=== PATIENT | male | born 1990 | race African-American/Black ===

== ENCOUNTER 2019-03-05 18:55 | Emergency (ER) | payer SELFPAY ==
--- NOTE | 2019-03-05 19:06 | ER Document Report ---
ED Medical Screen (RME) - General Chief Complaint: Hand Pain Stated Complaint: HAND PAIN Time Seen by Provider: 03/05/19 19:00 Mode of Arrival: Ambulatory Information source: Patient Notes: 28-year-old male presents to ED for complaint of pain and swelling to his left thumb. He states he first injured it playing basketball and the bone came through the skin. He states it was sutured in [place]. He states he has not followed up with orthopedic or anybody since he injured his hand. The hand is now swollen and painful. States he does not smoke cigarettes drink alcohol but he does smoke marijuana. Patient is alert oriented respirations regular and unlabored. I have greeted and performed a rapid initial assessment of this patient. A comprehensive ED assessment and evaluation of the patient, analysis of test results and completion of medical decision making process will be conducted by an additional ED providers.
--- NOTE | 2019-03-05 20:27 | RADIOLOGY REPORT (SQ) ---
EXAM DESCRIPTION: XR FINGERS COMPLETED DATE/TME: 03/05/2019 19:08 CLINICAL HISTORY: 28 years, Male, Recent open fracture pain and swelling COMPARISON: EXAM DESCRIPTION: CLINICAL HISTORY: Recent open fracture pain and swelling COMPARISON: None FINDINGS: 3 view(s) submitted. Tiny bone fragments are seen adjacent to the first IP joint. These could be sequela of prior injury but avulsive fragments are also possible. No other fracture or dislocation. IMPRESSION: Possible avulsion most likely arising from the distal aspect of the first proximal phalanx.
--- NOTE | 2019-03-05 21:25 | ER Document Report ---
ED Hand/Wrist Injury - General Chief Complaint: Hand Pain Stated Complaint: HAND PAIN Time Seen by Provider: 03/05/19 19:00 Primary Care Provider: [facility] [Provider Group] - Follow up as needed JENA SANTANA MD [ACTIVE PROVISIONAL STAFF] - 03/07/19 TUCKER LARRY JR, DO [ACTIVE PROVISIONAL STAFF] - Follow up as needed Mode of Arrival: Ambulatory Information source: Patient Notes: Patient presents with concern about possible infection to the left thumb. Patient states that he was playing basketball 2 weeks ago fell and had an open fracture. Patient had the wound sutured and he was placed in a splint and on antibiotics. Patient states that he was advised to follow-up with orthopedics but did not. Patient is visiting here and is due to return home in the next 2 to 3 days. Patient's friend look at the wound and was concerned that might be infected which is why he came here for further evaluation. Patient denies any new injury or fever. Patient complains of swelling and inability to flex the thumb. Patient states he has been cleaning the wound with peroxide and applying Neosporin. - HPI Injury to: Thumb Onset: Other - 2 weeks Where: Outdoors Timing: Still present Quality of pain: Achy Pain Level: 2 Context: Swelling - Related Data Allergies/Adverse Reactions: No Known Allergies Allergy (Unverified 03/05/19 19:03) Past Medical History - General Information source: Patient - Social History Smoking Status: Never Smoker Chew tobacco use (# tins/day): No Frequency of alcohol use: None Drug Abuse: Marijuana Family History: Reviewed & Not Pertinent Patient has suicidal ideation: No Patient has homicidal ideation: No - Medical History Medical History: Negative Surgical Hx: Negative Review of Systems - Review of Systems Constitutional: No symptoms reported. denies: Fever EENT: No symptoms reported Cardiovascular: No symptoms reported Respiratory: No symptoms reported Gastrointestinal: No symptoms reported Genitourinary: No symptoms reported Male Genitourinary: No symptoms reported Musculoskeletal: Joint pain - Left thumb tenderness, swelling and decreased range of motion Skin: Change in color - Darkening around incision of left thumb Hematologic/Lymphatic: No symptoms reported Neurological/Psychological: No symptoms reported Physical Exam - Vital signs Vitals: Temp Pulse Resp BP Pulse Ox 98.0 F 63 18 132/68 H 100 03/05/19 19:03 03/05/19 19:03 03/05/19 19:03 03/05/19 19:03 03/05/19 19:03 - General General appearance: Appears well, Alert In distress: None - HEENT Head: Normocephalic, Atraumatic Eyes: Normal - Respiratory Respiratory status: No respiratory distress Chest status: Nontender Breath sounds: Normal. No: Rales, Rhonchi, Stridor, Wheezing Chest palpation: Normal - Cardiovascular Rhythm: Regular Heart sounds: S1 appreciated, S2 appreciated Pulses: Normal: Radial - Back Back: Normal - Extremities General lower extremity: Normal inspection, Normal strength Hand: Tender - Tenderness to the left thumb with 2+ edema, darkened skin around incision with crusted drainage, no erythema. Patient unable to flex left thumb., Laceration, Swelling, Tendon deficit. No: Nail injury - Neurological Neuro grossly intact: Yes Cognition: Normal [place] Coma Scale Eye Opening: Spontaneous [place] Coma Scale Verbal: Oriented Albert Coma Scale Motor: Obeys Commands Albert Coma Scale Total: 15 - Psychological Associated symptoms: Normal affect, Normal mood - Skin Skin Temperature: Warm Skin Moisture: Dry Skin irregularity: Laceration - Sutured laceration to palmar surface of left thumb, crusted drainage around sutures with darkening of the skin Course - Re-evaluation Re-evalutation: 03/05/19 21:[address] Ivan chandler to bedside for exam. Advises labs and consultation with surgeon once labs resulted. 03/05/19 22:51 Call placed for consultation with orthopedics, Dr. Santana. 03/05/19 23:[address] Santana who states that he is not in the office tomorrow but patient can follow-up in his office on Wednesday but he needs to call to make an appointment. Ideally recommends patient following up with the surgeon who cannot definitively treat and follow him, as patient is only come to be in town for a few days and then returns to [place]. Does recommend suggesting the patient that he should return home sooner so that he can see an orthopedic in his hometown for definitive treatment. 03/06/19 Patient advises imperative that he follows up with orthopedics for further evaluation. Patient advised that he can have developing infection that could put his thumb at risk and may result in potential loss of the extremity if he does not see orthopedics for follow-up and further management. - Vital Signs Vital signs: Temp Pulse Resp BP Pulse Ox 98.0 F 64 18 132/70 H 100 03/05/19 23:47 03/05/19 23:47 03/05/19 23:47 03/05/19 23:47 03/05/19 19:03 - Laboratory Result Diagrams: 03/05/19 21:20 03/05/19 21:20 Laboratory results interpreted by me: 03/05/19 03/05/19 03/05/19 20:45 21:20 21:20 Lymph % (Auto) 54.5 H Seg Neutrophils % 35.9 L Glucose 156 H Urine Blood MODERATE H Urine Urobilinogen 2.0 H Labs- Entire Visit 03/05/19 03/05/19 03/05/19 20:45 21:20 21:20 WBC 5.9 RBC 4.56 Hgb 13.9 Hct 40.8 MCV 89 MCH 30.6 MCHC 34.2 RDW 13.2 Plt Count 283 Lymph % (Auto) 54.5 H Bennett % (Auto) 7.8 Eos % (Auto) 1.3 Baso % (Auto) 0.5 Absolute Neuts (auto) 2.1 Absolute Lymphs (auto) 3.2 Absolute Monos (auto) 0.5 Absolute Eos (auto) 0.1 Absolute Basos (auto) 0.0 Seg Neutrophils % 35.9 L Sodium 140.7 Potassium 3.6 Chloride 104 Carbon Dioxide 27 Anion Gap 10 BUN 12 Creatinine 1.00 Est GFR ( Amer) > 60 Est GFR (MDRD) Non-Af > 60 Glucose 156 H Calcium 9.5 Total Bilirubin 0.4 Direct Bilirubin 0.2 Neonat Total Bilirubin Not Reportable Neonat Direct Bilirubin Not Reportable Neonat Indirect Bili Not Reportable AST 27 ALT 26 Alkaline Phosphatase 62 C-Reactive Protein Total Protein 7.5 Albumin 4.3 Urine Color YELLOW Urine Appearance CLEAR Urine pH 6.0 Ur Specific Hepler 1.014 Urine Protein NEGATIVE Urine Glucose (UA) NEGATIVE Urine Ketones NEGATIVE Urine Blood MODERATE H Urine Nitrite (Reflex) NEGATIVE Urine Bilirubin NEGATIVE Urine Urobilinogen 2.0 H Leukocyte Esterase Rfl NEGATIVE Urine Bacteria (Auto) 3+ Urine WBC (Reflex) 10 Squamous Epi Cells Auto MANY Urine Mucus (Auto) 2+ Urine Ascorbic Acid NEGATIVE 03/05/19 21:20 WBC RBC Hgb Hct MCV MCH MCHC RDW Plt Count Lymph % (Auto) Bennett % (Auto) Eos % (Auto) Baso % (Auto) Absolute Neuts (auto) Absolute Lymphs (auto) Absolute Monos (auto) Absolute Eos (auto) Absolute Basos (auto) Seg Neutrophils % Sodium Potassium Chloride Carbon Dioxide Anion Gap BUN Creatinine Est GFR ( Amer) Est GFR (MDRD) Non-Af Glucose Calcium Total Bilirubin Direct Bilirubin Neonat Total Bilirubin Neonat Direct Bilirubin Neonat Indirect Bili AST ALT Alkaline Phosphatase C-Reactive Protein < 5.0 Total Protein Albumin Urine Color Urine Appearance Urine pH Ur Specific Hepler Urine Protein Urine Glucose (UA) Urine Ketones Urine Blood Urine Nitrite (Reflex) Urine Bilirubin Urine Urobilinogen Leukocyte Esterase Rfl Urine Bacteria (Auto) Urine WBC (Reflex) Squamous Epi Cells Auto Urine Mucus (Auto) Urine Ascorbic Acid - Diagnostic Test Radiology reviewed: Image reviewed, Reports reviewed Discharge - Discharge Clinical Impression: Pain of right thumb, Wound infection Condition: Stable Disposition: HOME, SELF-CARE Instructions: Cephalexin ([facility]), Soap Cleansing ([facility]) Additional Instructions: Return immediately for any new or worsening symptoms Followup with your primary care provider, call tomorrow to make a followup appointment Cleanse wound with antibacterial soap and water daily, dressed with dry dressing Follow-up with Dr. Santana in his office on Wednesday. Call his office on Wednesday to make a follow-up appointment for Wednesday. Follow-up with orthopedics in your hometown, you may consider returning home sooner so that you can be treated by a local orthopedic doctor in your hometown. Prescriptions: Cephalexin Monohydrate [Keflex 500 mg Capsule] 500 mg PO Q6H 5 Days capsule Referrals: JENA SANTANA MD [ACTIVE PROVISIONAL STAFF] - 03/07/19 TUCKER LARRY JR, [ACTIVE PROVISIONAL STAFF] - Follow up as needed [facility] [Provider Group] - Follow up as needed
[2019-03-05 21:27] LABS: APPEARANCE,URINE CLEAR; BILIRUBIN,URINE NEGATIVE (NEGATIVE); COLOR,URINE YELLOW; GLUCOSE, URINE NEGATIVE (NEGATIVE); KETONES,URINE NEGATIVE (NEGATIVE); PROTEIN,URINE NEGATIVE (NEGATIVE); URINE SPECIFIC GRAVITY 1.014
[2019-03-05 21:49] LABS: ABSOLUTE EOSINOPHILS # (AUTO) 0.1 10^3/uL (0.0-0.6); ABSOLUTE LYMPHOCYTES (AUTO) 3.2 10^3/uL (0.5-4.7); ABSOLUTE MONOCYTES (AUTO) 0.5 10^3/uL (0.1-1.4); ABSOLUTE NEUT (AUTO) 2.1 10^3/uL (1.7-8.2); BASOPHILS % (AUTO) 0.5 % (0-2); EOSINOPHILS % (AUTO) 1.3 % (0-6); HEMATOCRIT 40.8 % (37.9-51.0); HEMOGLOBIN 13.9 g/dL (13.5-17.0); LYMPHOCYTES % (AUTO) 54.5 % (13-45); MEAN CORPUSCULAR HEMOGLOBIN 30.6 pg (27.0-33.4); MEAN CORPUSCULAR HGB CONC 34.2 g/dL (32.0-36.0); MEAN CORPUSCULAR VOLUME 89 fl (80-97); MONOCYTES % (AUTO) 7.8 % (3-13); PLATELET COUNT 283 10^3/uL (150-450); RED BLOOD COUNT 4.56 10^6/uL (4.35-5.55); RED CELL DISTRIBUTION WIDTH 13.2 % (11.5-14.0); SEGMENTED NEUTROPHILS % (AUTO) 35.9 % (42-78); TOTAL CELLS COUNTED % (AUTO) 100 %; WHITE BLOOD COUNT 5.9 10^3/uL (4.0-10.5)
[2019-03-05 22:01] LABS: ALBUMIN 4.3 g/dL (3.5-5.0); ALKALINE PHOSPHATASE 62 U/L (38-126); ANION GAP 10 (5-19); ASPARTATE AMINO TRANSFERASE 27 U/L (17-59); BILIRUBIN,DIRECT 0.2 mg/dL (0.0-0.4); BILIRUBIN,TOTAL 0.4 mg/dL (0.2-1.3); BLOOD UREA NITROGEN 12 mg/dL (7-20); CALCIUM 9.5 mg/dL (8.4-10.2); CARBON DIOXIDE 27 mmol/L (22-30); CHLORIDE 104 mmol/L (98-107); GLUCOSE 156 mg/dL (75-110); POTASSIUM 3.6 mmol/L (3.6-5.0); TOTAL PROTEIN 7.5 g/dL (6.3-8.2)
[2019-03-05] MEDS ORDERED: CEPHALEXIN 500 MG CAPSULE PO ONE (23:02)
[2019-03-05 23:48] VITALS: BP 132/70
== END 2019-03-05 23:47 | disposition home or self-care (01) ==
LOC: ER 18:55
DX: S61.012A Laceration without foreign body of left thumb without damage to nail, initial encounter (principal); L08.9 Local infection of the skin and subcutaneous tissue, unspecified; M79.642 Pain in left hand; X58.XXXA Exposure to other specified factors, initial encounter
CPT/HCPCS: 36415; 80053; 81001; 85025; 86140; 87040; 87070; 87077; 87086; 87186; 87205; 99283